=== PATIENT | female | born 1950 | race African-American/Black ===

== ENCOUNTER → 2016-11-08 | Day surgery (SDC) | payer OTHER ==
[~2016-11-08] MED LIST: ACTONEL; ASPIRIN325 M1 PO; ASPIRIN81 M2 PO; B-650 MG PO; CELECOXIB200 MG PO; DICLOFENAC; FAMOTIDINE PO; FEOSOL PO; LASIX PO; LISINOPRIL10 MG PO; NAPROSYN500 MG PO; OMEPRAZOLE20 M1 PO; POTASSIUM CHLO10 ME1 PO; SLEEP AID50 MG PO; VITAMIN B122500 MC1; ZESTRIL10 M2 PO; ZYRTEC10 M2 PO; [UNRECOGNIZED DRUG - REMARK]
--- NOTE | ~2016-11-08 | OR ---
Unit #: [id number] #: [id number] Patient: ELEAZAR SHETH [id number] [address] [place], [place] [address] [id number] O MR#: [id number] NAME: ELEAZAR SHETH ROOM: Date of Procedure: 11/08/2016 Admission Date: 11/08/2016 Surgeon: Carlos Padgett M.D. : 1950 Attending Physician: Carlos Padgett M.D. Primary Care Physician: Hilda Rice OPERATIVE REPORT PROCEDURE PERFORMED Esophagogastroduodenoscopy to descending duodenum and colonoscopy to cecum. INDICATIONS FOR PROCEDURE The patient with severe iron-deficiency anemia, undergoing evaluation with upper endoscopy and colonoscopy. MEDICATIONS Monitored anesthesia. POSTOPERATIVE FINDINGS 1. Small hiatal hernia. 2. Previous gastric bypass surgery noted. 3. Anastomosis and proximal small bowel was intact. 4. Colonoscopy completed to cecum. Prep was good. No polyps, masses, or colitis was seen. 5. Diverticulosis. PLAN Replace iron intravenously. Check ferritin, B12, and folate levels. DESCRIPTION OF PROCEDURE The patient was explained of the procedure, risks, and benefits along with risks and benefits of anesthesia. She was brought to the endoscopy room. Propofol anesthesia was given. Bite block was placed. The scope was passed down the mouth into esophagus, to the stomach and to the proximal small bowel. Gently, the scope was then pulled out. Findings as described. No immediate complications were seen. At this time, she was turned around and repositioned for colonoscopy. Rectal exam was done, which was normal. Colonoscope was lubricated, passed up the rectum, advanced under direct vision all the way to the cecum. Cecum was identified by ileocecal valve and appendiceal orifice. I then started to pull the scope out carefully looking. No polyps, masses, or colitis was seen. Prep was good. I retroflexed in the rectum, small hemorrhoids seen. Gently, the scope was pulled out. She tolerated it well. No major complications were seen. Dictated by... Unit #: [id number] #: [id number] Patient: ELEAZAR SHETH Linda Bobby/ellie TD: 11/09/2016 02:29 JOB #: [id number] CC: Rob Mckeon M.D. OPERATIVE REPORT X Carlos Padgett MD PROCEDURE OPERATIVE NOTE
[2016-11-08 10:55] LABS: BASOPHIL% 0.5 % (0-2.5); EOSINOPHIL# 0.2 X10e3 (0-0.7); EOSINOPHIL% 4.8 % (0.0-7.0); HEMATOCRIT 33.3 % (35.0-45.0); HEMOGLOBIN 10.9 gm/dL (12.0-16.0); LYMPHOCYTE# 1.5 X10e3 (1.0-3.5); LYMPHOCYTE% 31.6 % (17.0-45.0); MEAN CELL VOLUME 90.5 FL (83-96); MEAN CORPUSCULAR HEMOGLOBIN 29.7 PG (28-34); MEAN CORPUSCULAR HGB CONC 32.8 g/dL (30-36); MEAN PLATELET VOLUME 8.3 FL (6.5-11.5); MONOCYTE# 0.5 X10e3 (0-1.0); MONOCYTE% 9.5 % (3.0-12.0); NEUTROPHIL# 2.6 X10e3 (1.5-7.1); NEUTROPHIL% 53.6 % (40-75); PLATELET COUNT 298 X10e3 (140-420); RED BLOOD COUNT 3.68 X10e (3.90-5.30); RED CELL DISTRIBUTION WIDTH 12.8 % (11.0-15.5); WHITE BLOOD COUNT 4.8 X10e3 (4.0-10.5)
[2016-11-08 10:57] LABS: DIFF IND NO
[2016-11-08 11:27] LABS: ALBUMIN SERUM 3.4 g/dL (3.5-5.0); ALKALINE PHOSPHATASE 96 U/L (32-92); ALT (SGPT) 16 U/L (10-40); AST (SGOT) 20 U/L (10-42); BILIRUBIN,TOTAL 0.2 mg/dL (0.2-2.0); BLOOD UREA NITROGEN 9 mg/dL (9-23); BUN/CREATININE RATIO 12.85; CALCIUM SERUM 9.1 mg/dL (8.4-10.2); CARBON DIOXIDE 28 mmol/L (22-31); CHLORIDE 105 mmol/L (100-111); CREATININE SERUM 0.7 mg/dL (0.6-1.4); GLOM FILT RATE Estimated ABOVE60 mL/min (>60); GLUCOSE FASTING 107 mg/dL (70-110); POTASSIUM 3.8 mmol/L (3.5-5.1); PROTEIN TOTAL SERUM 6.1 g/dL (6.0-8.3); SODIUM 140 mmol/L (135-145)
[2016-11-08 11:49] LABS: FOLATE (FOLIC ACID) 8.7 ng/mL (>5.8)
== END | disposition home or self-care (01) ==
LOC: COPS 07:56
PROVIDERS: Internal Medicine
DX: D50.9 Iron deficiency anemia, unspecified (principal); K57.30 Diverticulosis of large intestine without perforation or abscess without bleeding; K64.9 Unspecified hemorrhoids; K44.9 Diaphragmatic hernia without obstruction or gangrene; K21.9 Gastro-esophageal reflux disease without esophagitis; M19.90 Unspecified osteoarthritis, unspecified site; Z87.440 Personal history of urinary (tract) infections; Z88.5 Allergy status to narcotic agent; Z79.1 Long term (current) use of non-steroidal anti-inflammatories (NSAID); Z79.82 Long term (current) use of aspirin; Z79.899 Other long term (current) drug therapy; Z90.49 Acquired absence of other specified parts of digestive tract; Z90.710 Acquired absence of both cervix and uterus; Z96.653 Presence of artificial knee joint, bilateral; Z98.84 Bariatric surgery status
CPT/HCPCS: 80053; 82607; 82728; 82746; 85025; J2250

== ENCOUNTER → 2016-12-03 | Outpatient (CLI) | payer OTHER | END | disposition home or self-care (01) | LOC: CSSDAY 07:28 | DX: D50.9 Iron deficiency anemia, unspecified (principal); K90.9 Intestinal malabsorption, unspecified | CPT/HCPCS: 96365; J1756 ==

== ENCOUNTER → 2016-12-24 | Outpatient (CLI) | payer OTHER | END | disposition home or self-care (01) | LOC: CSSDAY 07:17 | DX: D50.9 Iron deficiency anemia, unspecified (principal); K90.9 Intestinal malabsorption, unspecified; Z79.899 Other long term (current) drug therapy | CPT/HCPCS: 96374; J1756 ==

== ENCOUNTER → 2016-12-31 | Outpatient (CLI) | payer OTHER | END | disposition home or self-care (01) | LOC: CSSDAY 07:31 | DX: D50.9 Iron deficiency anemia, unspecified (principal); K90.9 Intestinal malabsorption, unspecified; Z79.899 Other long term (current) drug therapy | CPT/HCPCS: 96365; J1756 ==